=== PATIENT | male | born 1930 | race Caucasian/White ===

== ENCOUNTER 2019-02-14 12:34 | Emergency (ER) | payer MEDICARE, OTHER ==
--- NOTE | 2019-02-14 12:53 | EDM.PDOC ---
ED HPI GENERAL MEDICAL PROBLEM - General Chief Complaint: General Stated Complaint: HEADACHE Time Seen by Provider: 02/14/19 12:53 Source of Information: Reports: Patient History Limitations: Reports: No Limitations - History of Present Illness INITIAL COMMENTS - FREE TEXT/NARRATIVE: HISTORY AND PHYSICAL: History of present illness: Patient is an 88-year-old male presents to the ED with some discomfort in his left arm. He states his arm has been feeling shaky and twitching since this morning. He denies any pain or numbness in the arm. He states he did have a fall about 1 week ago. states they were carrying a trunk down some stairs when she missed a step and they both fell. states she landed on top of him and he did lose consciousness momentarily. He was not seen for this. He is on a daily baby aspirin. He has had a slight headache for the past couple of days but denies neck pain, chest pain, shortness of breath, abdominal pain, nausea, vomiting, diarrhea. He has had a slight cough lately and his O2 is 89% on RA on arrival. Review of systems: As per history of present illness and below otherwise all systems reviewed and negative. Past medical history: As per history of present illness and as reviewed below otherwise noncontributory. Surgical history: As per history of present illness and as reviewed below otherwise noncontributory. Social history: No reported history of drug or alcohol abuse. Family history: As per history of present illness and as reviewed below otherwise noncontributory. Physical exam: General: Patient sitting comfortably in no acute distress and nontoxic appearing HEENT: Atraumatic, normocephalic, pupils reactive, negative for conjunctival pallor or scleral icterus, mucous membranes moist, throat clear, neck supple, nontender, trachea midline. No meningeal signs. Lungs: Clear to auscultation, breath sounds equal bilaterally, chest nontender. Heart: S1S2, regular, negative for clicks, rubs, or overt murmur. Abdomen: Soft, nondistended, nontender. Negative for masses or hepatosplenomegaly. Negative for costovertebral tenderness. No rigidity, rebound , guarding. Pelvis: Stable nontender. Genitourinary: Deferred. Rectal: Deferred. Extremities: Atraumatic, negative for cords or calf pain. Neurovascular unremarkable. Neuro: Awake, alert, oriented. Cranial nerves II through XII unremarkable. Cerebellum unremarkable. Motor and sensory unremarkable throughout. Exam nonfocal. Notes: Discussed with Dr. Wilde, he agree to transferring the patient to higher level of care. Diagnostics: CBC, CMP, Troponin, EKG, CXR, head CT, cervical CT Therapeutics: DuoNeb Prescriptions: Impression: Acute on chronic subdural hematoma Plan: Dr. Alvares, [facility], accepts patient for transfer via ground EMS. Definitive disposition and diagnosis as appropriate pending reevaluation and review of above. - Related Data Allergies Allergy/AdvReac Type Severity Reaction Status Date / Time aspirin Allergy Blisters Verified 10/12/14 11:59 vitamin C Allergy Rash Uncoded 02/14/19 12:48 Home Meds: Home Meds Aspirin [Kayla Chewable] 81 mg PO DAILY 10/12/14 [History] Beta-Carotene(A) W-C & E/Min [Vision Vitamins] 1 each PO DAILY 10/12/14 [History ] Gemfibrozil 600 mg PO DAILY 10/12/14 [History] Lutein/Minerals/Vit A,C & E [Ocuvite] 1 tab PO DAILY 10/12/14 [History] Multivitamin/Iron/Folic Acid [Centrum Complete Multivit] 1 each PO DAILY [History] Thyroid [[place] Thyroid] 0.05 mcg PO DAILY 10/12/14 [History] Past Medical History Other HEENT History: blood behind eyes ED ROS GENERAL - Review of Systems Review Of Systems: ROS reveals no pertinent complaints other than HPI. ED EXAM, GENERAL - Physical Exam Exam: See Below (see dictation) Course - Vital Signs Last Recorded V/S: Last Vital Signs Temp 96.4 F 02/14/19 12:48 Pulse 95 02/14/19 12:48 Resp 18 02/14/19 12:48 BP 152/75 H 02/14/19 12:48 Pulse Ox 89 L 02/14/19 12:48 - Orders/Labs/Meds Orders: Active Orders 24 hr Category Date Time Status EKG Documentation Completion [RC] STAT Care 02/14/19 13:00 Active Oxygen Therapy [RC] ASDIRECTED Care 02/14/19 13:00 Active RT Aerosol Therapy [RC] ASDIRECTED Care 02/14/19 13:47 Active Sodium Chloride 0.9% [Saline Flush] Med 02/14/19 13:00 Active 10 ml FLUSH ASDIRECTED PRN Sodium Chloride 0.9% [Saline Flush] Med 02/14/19 13:00 Active 2.5 ml FLUSH ASDIRECTED PRN Saline Lock Insert [OM.PC] Stat Oth 02/14/19 13:00 Ordered Medication Orders Sodium Chloride (Saline Flush) 10 ml FLUSH ASDIRECTED PRN PRN Reason: Keep Vein Open Last Admin: 02/14/19 13:22 Dose: 10 ml Sodium Chloride (Saline Flush) 2.5 ml FLUSH ASDIRECTED PRN PRN Reason: Keep Vein Open Last Admin: 02/14/19 13:21 Dose: 2.5 ml Labs: Laboratory Tests 02/14/19 02/14/19 02/14/19 Range/Units 13:20 13:20 13:20 WBC 7.90 (4.0-11.0) K/uL RBC 4.20 L (4.50-5.90) M/uL Hgb 13.9 (13.0-17.0) g/dL Hct 40.7 (38.0-50.0) % MCV 96.9 (80.0-98.0) fL MCH 33.1 H (27.0-32.0) pg MCHC 34.2 (31.0-37.0) g/dL RDW Std Deviation 47.9 (28.0-62.0) fl RDW Coeff of Jinny 13 (11.0-15.0) % Plt Count 142 L (150-400) K/uL MPV 8.80 (7.40-12.00) fL Neut % (Auto) 67.2 (48.0-80.0) % Lymph % (Auto) 23.5 (16.0-40.0) % [place] % (Auto) 6.5 (0.0-15.0) % Eos % (Auto) 2.5 (0.0-7.0) % Baso % (Auto) 0.3 (0.0-1.5) % Neut # (Auto) 5.3 (1.4-5.7) K/uL Lymph # (Auto) 1.9 (0.6-2.4) K/uL [place] # (Auto) 0.5 (0.0-0.8) K/uL Eos # (Auto) 0.2 (0.0-0.7) K/uL Baso # (Auto) 0.0 (0.0-0.1) K/uL Nucleated RBC % 0.0 /100WBC Nucleated RBCs # 0 K/uL INR 1.00 Sodium 137 (136-148) mmol/L Potassium 4.4 (3.5-5.1) mmol/L Chloride 102 (98-107) mmol/L Carbon Dioxide 23.5 (21.0-32.0) mmol/L BUN 18 (7.0-18.0) mg/dL Creatinine 1.0 (0.8-1.3) mg/dL Est Cr Clr Drug Dosing 53.74 mL/min Estimated GFR (MDRD) > 60.0 ml/min Glucose 95 (74-106) mg/dL Calcium 8.6 (8.5-10.1) mg/dL Total Bilirubin 0.8 (0.2-1.0) mg/dL AST 12 L (15-37) IU/L ALT 16 (14-63) IU/L Alkaline Phosphatase 85 (46-116) U/L Troponin I < 0.050 (0.000-0.056) ng/mL Total Protein 7.4 (6.4-8.2) g/dL Albumin 3.4 (3.4-5.0) g/dL Globulin 4.0 (2.6-4.0) g/dL Albumin/Globulin Ratio 0.9 (0.9-1.6) Meds: Medications Generic Name Dose Route Start Last Admin Trade Name Freq PRN Reason Stop Dose Admin Sodium Chloride 10 ml 02/14/19 13:00 02/14/19 13:22 Saline Flush FLUSH 10 ml ASDIRECTED PRN Administration Keep Vein Open Sodium Chloride 2.5 ml 02/14/19 13:00 02/14/19 13:21 Saline Flush FLUSH 2.5 ml ASDIRECTED PRN Administration Keep Vein Open Discontinued Medications Generic Name Dose Route Start Last Admin Trade Name Freq PRN Reason Stop Dose Admin Albuterol/Ipratropium 3 ml 02/14/19 13:47 02/14/19 14:15 Duoneb 3.0-0.5 Mg/3 Ml NEB 02/14/19 13:48 3 ml ONETIME ONE Administration Sodium Chloride 1,000 mls @ 999 mls/hr 02/14/19 13:00 02/14/19 13:21 Normal Saline IV 02/14/19 14:00 999 mls/hr BOLUS ONE Administration Departure - Departure Time of Disposition: 15:01 Disposition: DC/Tfer to Acute Hospital 02 Condition: Good Clinical Impression: Acute on chronic intracranial subdural hematoma - Discharge Information Referrals: Adalberto Ortiz MD [Primary Care Provider] - Forms: ED Department Discharge - My Orders Last 24 Hours: My Active Orders 02/14/19 13:00 EKG Documentation Completion [RC] STAT Oxygen Therapy [RC] ASDIRECTED Sodium Chloride 0.9% [Saline Flush] 10 ml FLUSH ASDIRECTED PRN Sodium Chloride 0.9% [Saline Flush] 2.5 ml FLUSH ASDIRECTED PRN Saline Lock Insert [OM.PC] Stat 02/14/19 13:47 RT Aerosol Therapy [RC] ASDIRECTED - Assessment/Plan Last 24 Hours: My Active Orders 02/14/19 13:00 EKG Documentation Completion [RC] STAT Oxygen Therapy [RC] ASDIRECTED Sodium Chloride 0.9% [Saline Flush] 10 ml FLUSH ASDIRECTED PRN Sodium Chloride 0.9% [Saline Flush] 2.5 ml FLUSH ASDIRECTED PRN Saline Lock Insert [OM.PC] Stat 02/14/19 13:47 RT Aerosol Therapy [RC] ASDIRECTED
[2019-02-14] MEDS ORDERED: Sodium Chloride 0.9% 10 ML Syringe FLUSH PRN (13:00)
[2019-02-14] MEDS ORDERED: Sodium Chloride 0.9% 2.5 ML Syringe FLUSH PRN (13:00)
[2019-02-14] MEDS ORDERED: Sodium Chloride 0.9% 1,000 ML IV ONE (13:00)
[2019-02-14] MEDS ORDERED: Albuterol/Ipratropium 3.0-0.5 MG/3 ML Neb Soln NEB ONE (13:47)
[2019-02-14 13:52] LABS: BLOOD UREA NITROGEN,BUN 18 mg/dL (7.0-18.0); CARBON DIOXIDE,CO2 23.5 mmol/L (21.0-32.0); CHLORIDE,CL 102 mmol/L (98-107); GLUCOSE RANDOM 95 mg/dL (74-106); POTASSIUM,K 4.4 mmol/L (3.5-5.1); SODIUM,NA 137 mmol/L (136-148)
--- NOTE | 2019-02-14 14:30 | CR ---
INDICATION: Dyspnea. COMPARISON: March 03, 2013. FINDINGS: Heart and mediastinum are stable. Heart size is upper normal. No mediastinal widening identified. The lungs demonstrate no significant new/acute change. Minimal linear stranding in the lower lung zones. Bilateral rib deformities consistent with remote, healed fractures. There is no sign of pneumothorax. stable granuloma right mid lung. IMPRESSION: Stable chest. No new/acute findings. Dictated by Roger Spencer MD @ Feb 14 2019 2:28PM Signed by Dr. Roger Spencer @ Feb 14 2019 2:30PM
--- NOTE | 2019-02-14 14:47 | CT ---
INDICATION: Fall 1 week prior, headache, left arm abnormality TECHNIQUE: CT cervical spine without contrast. COMPARISON: None FINDINGS: Vertebral alignment: Alignment is normal. Vertebrae: There are no fractures or suspicious bony lesions. Discs and facet joints: Multilevel degenerative changes. Extraspinal findings: Prevertebral soft tissues, visualized airway, and visualized lungs are unremarkable. Maxillary sinus mucosal thickening. IMPRESSION: No evidence for acute cervical spine trauma. Multilevel degenerative changes. Please note that all CT scans at this facility use dose modulation, iterative reconstruction, and/or weight-based dosing when appropriate to reduce radiation dose to as low as reasonably achievable. Dictated by Jerzy Owen MD @ Feb 14 2019 2:46PM Signed by Dr. Jerzy Owen @ Feb 14 2019 2:46PM
--- NOTE | 2019-02-14 14:51 | CT ---
INDICATION: Headache, fall 1 week prior TECHNIQUE: CT head without contrast. COMPARISON: None FINDINGS: CSF spaces: Within normal limits for age. Brain parenchyma: The hardin-white differentiation is normal. 4-5 millimeter right frontal acute on chronic subdural hematoma with 2 millimeters of [id number] midline shift. Two 3 millimeter left parietal chronic subdural hematoma. Skull base and calvarium: Maxillary sinus mucosal thickening. The visualized orbits are grossly unremarkable. No skull fractures. IMPRESSION: 4-5 millimeter right frontal acute on chronic subdural hematoma with 2 millimeters of [id number] midline shift. Two 3 millimeter left parietal chronic subdural hematoma. Findings discussed on 02/14/2019 at 2:[address] Brown. Dictated by Jerzy Owen MD @ 02/14/2019 2:50:39 PM Please note that all CT scans at this facility use dose modulation, iterative reconstruction, and/or weight-based dosing when appropriate to reduce radiation dose to as low as reasonably achievable. Dictated by: Jerzy Owen MD @ 02/14/2019 14:50:43 (Electronically Signed)
[2019-02-14 15:24] VITALS: BP 147/76; PULSE 78
== END 2019-02-14 18:14 ==
LOC: MW.ED 12:34
DX: S06.5X9A Traumatic subdural hemorrhage with loss of consciousness of unspecified duration, initial encounter (principal); Z88.6 Allergy status to analgesic agent; Z88.8 Allergy status to other drugs, medicaments and biological substances; W10.9XXA Fall (on) (from) unspecified stairs and steps, initial encounter; Y93.89 Activity, other specified
CPT/HCPCS: 70450; 70450-26; 71045; 71045-26; 72125; 72125-26; 80053; 84484; 85025; 85610; 93005; 94640; 96360; 99284; 99285-25; J7040; J7620-GY